=== PATIENT | female | born 1990 | race Caucasian/White ===

== ENCOUNTER 2024-02-12 10:40 | Inpatient (IN) | payer OTHER ==
[2024-02-12] MEDS: ELECTROLYTE-148 SOLN 500 ML IV ONE (11:25)
[2024-02-12] MEDS: ELECTROLYTE-148 SOLN 1,000 ML IV SCH (12:00)
[2024-02-12 12:58] LABS: BASO % 0.6 % (0-2.0); EOS % 0.5 % (0-4.5); HEMOGLOBIN 12.4 GM/dL (10.7-15.3); LYMPH % 18.1 % (8-40); MCH 29.6 pg (25.7-33.7); MCHC 33.5 g/dl (32.0-36.0); MEAN CELL VOLUME 88.3 fl (80-96); MEAN PLT VOLUME 9.4 fl (7.5-11.1); MONO % 4.4 % (3.8-10.2); NEUT % 76.4 % (42.8-82.8); PLATELET COUNT 194 10^3/uL (134-434); RBC 4.19 M/mm3 (3.60-5.2); RDW 13.8 % (11.6-15.6); WHITE BLOOD COUNT 7.8 K/mm3 (4.0-10.0)
[2024-02-12] MEDS: CITRIC ACID/SODIUM CITRATE 30 ML UNIT-DOSE CUP PO ONE (13:00)
[2024-02-12 13:05] LABS: INR 0.95 (0.83-1.09); PROTHROMBIN TIME (PATIENT) 10.8 SEC (9.7-13.0)
[2024-02-12 13:20] LABS: POTASSIUM 3.9 mmol/L (3.5-5.1)
[2024-02-12 13:21] LABS: CALCIUM 8.9 mg/dL (8.5-10.1)
[2024-02-12 13:22] LABS: BLOOD UREA NITROGEN 7.2 mg/dL (7-18)
[2024-02-12 13:25] LABS: CREATININE 0.5 mg/dL (0.55-1.3)
[2024-02-12] MEDS ORDERED: LIGASURE IMPACT TP ONE (13:54)
[2024-02-12] MEDS ORDERED: morphine SULFATE/PF 1 MG/2 ML (2cc Syringe - QUVA) ONE (13:54)
[2024-02-12] MEDS ORDERED: FENTANYL CITRATE/PF 50 MCG/ML VIAL ONE (13:54)
[2024-02-12] MEDS ORDERED: ONDANSETRON 4 MG/2 ML VIAL IVPUSH PRN (14:05)
[2024-02-12] MEDS ORDERED: ceFAZolin SODIUM 1 GM VIAL ONE (14:18)
[2024-02-12] MEDS ORDERED: DEXAMETHASONE SOD PHOSPHATE 4 MG/1 ML VIAL ONE (14:18)
[2024-02-12] MEDS ORDERED: OXYTOCIN 10 UNITS/ML VIAL ONE (14:27)
[2024-02-12] MEDS ORDERED: OXYTOCIN 20 UNITS in 0.9% NS 20 UNIT/1,000 ML INFUS.BAG IV ONE (15:16)
[2024-02-12] MEDS: OXYTOCIN 20 UNITS in 0.9% NS 20 UNIT/1,000 ML INFUS.BAG IV SCH (15:25)
[2024-02-12] MEDS ORDERED: IBUPROFEN 600 MG TABLET (FP) PO PRN (15:47)
[2024-02-12] MEDS ORDERED: METHYLERGONOVINE MALEATE 0.2 MG/1 ML AMP IM PRN (15:47)
[2024-02-12 16:20] LABS: CORD BASE EXCESS -2.7 mmol/L (0-2); CORD HCO3 23.7 mmHg (20-29); CORD PCO2 46.5 mmHg (30-78); CORD pH 7.325 (7.14-7.44)
[2024-02-12 16:21] LABS: CORD BASE EXCESS -1.8 mmol/L (0-2); CORD HCO3 26.7 mmHg (20-29); CORD PCO2 60.4 mmHg (30-78); CORD pH 7.264 (7.14-7.44)
[2024-02-12 17:07] VITALS: BMI 43.0
[2024-02-12] MEDS: IBUPROFEN 800 MG/8 ML IJ IVPB PRN (22:46)
[2024-02-12] MEDS: SIMETHICONE 80 MG TAB.CHEW (FP) PO PRN (22:47)
[2024-02-13] MEDS ORDERED: oxyCODONE HCL 5 MG TABLET PO PRN (03:47)
[2024-02-13] MEDS: ACETAMINOPHEN 325 MG TABLET (FP) PO PRN ×2 (06:22→20:05)
[2024-02-13 08:20] LABS: BASO % 0.4 % (0-2.0); EOS % 0.5 % (0-4.5); HEMATOCRIT 31.1 % (32.4-45.2); HEMOGLOBIN 10.6 GM/dL (10.7-15.3); LYMPH % 18.5 % (8-40); MCH 30.3 pg (25.7-33.7); MCHC 34.1 g/dl (32.0-36.0); MEAN CELL VOLUME 88.7 fl (80-96); MEAN PLT VOLUME 9.6 fl (7.5-11.1); MONO % 5.5 % (3.8-10.2); NEUT % 75.1 % (42.8-82.8); PLATELET COUNT 162 10^3/uL (134-434); RDW 13.7 % (11.6-15.6); WHITE BLOOD COUNT 10.8 K/mm3 (4.0-10.0)
[2024-02-13] MEDS ORDERED: BISACODYL 10 MG SUPP.RECT RC PRN (15:47)
[2024-02-13] MEDS: IBUPROFEN 600 MG TABLET (FP) PO PRN (18:29)
[2024-02-15 08:19] LABS: BASO % 0.6 % (0-2.0); EOS % 2.6 % (0-4.5); HEMATOCRIT 33.4 % (32.4-45.2); HEMOGLOBIN 11.3 GM/dL (10.7-15.3); LYMPH % 19.7 % (8-40); MCH 30.1 pg (25.7-33.7); MCHC 33.7 g/dl (32.0-36.0); MEAN CELL VOLUME 89.2 fl (80-96); MEAN PLT VOLUME 8.7 fl (7.5-11.1); NEUT % 73.1 % (42.8-82.8); PLATELET COUNT 216 10^3/uL (134-434); RBC 3.75 M/mm3 (3.60-5.2); RDW 14.1 % (11.6-15.6); WHITE BLOOD COUNT 8.9 K/mm3 (4.0-10.0)
[2024-02-15 10:21] VITALS: BP 107/70; PULSE 87; RESP 16; TEMP 97.9
== END 2024-02-15 12:43 | disposition home or self-care (01) | DRG 540 ==
LOC: JDEL 10:40 → JLDR 11:20 → J3W 17:19
PROVIDERS: ADMIT Student in an Organized Health Care Education/Training Program; ATTEND Student in an Organized Health Care Education/Training Program
PROC: 10D00Z1 Extraction of Products of Conception, Low, Open Approach (ICD-10-PCS; principal; 2024-02-12)
PROC: 0UB70ZZ Excision of Bilateral Fallopian Tubes, Open Approach (ICD-10-PCS; 2024-02-12)
DX: O34.211 Maternal care for low transverse scar from previous cesarean delivery (principal); N85.8 Other specified noninflammatory disorders of uterus; O42.92 Full-term premature rupture of membranes, unspecified as to length of time between rupture and onset of labor; O24.429 Gestational diabetes mellitus in childbirth, unspecified control; Z3A.37 37 weeks gestation of pregnancy; Z30.2 Encounter for sterilization; Z37.0 Single live birth
CPT/HCPCS: 36415; 36600; 80048; 82803; 85025; 85610; 85730; 86780; 86850; 86900; 86901; 88305-TC; 88307-TC